=== PATIENT | male | born 1960 | race Caucasian/White ===

== ENCOUNTER 2018-04-04 11:37 | Emergency (ER) | payer BC ==
[2018-04-04] MEDS ORDERED: ONDANSETRON 4 MG/2 ML VIAL ONE (13:34)
[2018-04-04] MEDS ORDERED: MORPHINE 4 MG/ML SYR ONE (13:34)
--- NOTE | 2018-04-04 13:52 | RAD REPORT ---
EXAM DESCRIPTION: CT - Stone Protocol - 04/04/2018 1:32 pm CLINICAL HISTORY: Flank pain. left flank pain COMPARISON: CT ABDOMEN PELVIS WO CONTRAST dated 12/26/2007; CT ABD PELVIS W CONTRAST dated 06/10/2006; CT ABD PELVIS W CONTRAST dated 08/07/2005; Renal Ultrasound-Complete dated 04/22/2017 TECHNIQUE: Axial images were obtained without oral or IV contrast. Lack of contrast limits solid org an and vascular assessment. The [id number] spans the entirety of the system partially obscuring uppermost abdomen and lung bases. Coronal reformatted images were obtained and reviewed. All CT scans are performed using dose optimization technique as appropriate and may include automated exposure control or mA/KV adjustment according to patient size. FINDINGS: The lower lung dickson are clear. Imaged portions of the liver and spleen show no suspicious findings on non-contrast imaging. The panc reas and adrenal glands are normal. No pathologic lymphadenopathy in the abdomen or pelvis. Patient is status post left nephrectomy. Multiple right renal parapelvic cysts versus mild to moderat e right hydronephrosis is identified. No right renal stone. No bowel obstruction, free air, free fluid or abscess. Appendectomy. Lower lumbar degenerative changes are present. IMPRESSION: Left nephrectomy. Appendectomy. Mild to moderate right hydronephrosis/ partial UPJ obstruction versus multiple parapelvic cysts. It i s challenging to distinguish these two entities without the IV contrast material. If clinically indic ated, nuclear medicine Mag 3 renogram may be considered.
[2018-04-04 14:09] LABS: Absolute Lymphocytes (CBC) 1.6 K/uL (0.7-4.9); Absolute Monocytes 0.7 K/uL (0.1-1.3); Absolute Neutrophil 4.7 K/uL (1.8-8.0); Basophils % 0.5 % (0-1.3); Eosinophils % 1.4 % (0-4.4); Lymphocytes % 23.1 % (15.3-44.8); MCH 31.7 pg (27.0-35.0); MCV 89.6 fL (80-100); MPV 8.1 fL (7.6-11.3); Monocytes % 9.3 % (3.3-12.3)
[2018-04-04 14:22] LABS: Albumin 3.7 g/dL (3.4-5.0); Bilirubin Direct 0.1 mg/dL (0-0.2); Bilirubin Total 0.4 mg/dL (0.2-1.0); Potassium 4.2 mmol/L (3.5-5.1)
[2018-04-04] MEDS ORDERED: NA CHLORIDE 0.9% 1,000 ML ONE (15:27)
--- NOTE | 2018-04-04 17:35 | ER ---
Nurse's Notes [facility] Name: Ra Sierra Age: 58 yrs Sex: Male : 1960 Arrival Date: 04/04/2018 Time: 11:39 Bed 23 Private MD: Out, [facility] Diagnosis: Acute pancreatitis;Low back pain Presentation: 04/04 11:54 Presenting complaint: Patient states: L low back pain that radiates to L groin and down ss L thigh that began 18 days ago. Pt reports lifting heavy objects quite often. Has seen a chiropractor recently, but states the pain has not improved. Transition of care: patient was not received from another setting of care. Onset of symptoms was March 17, 2018. Risk Assessment: Do you want to hurt yourself or someone else? Patient reports no desire to harm self or others. Initial Sepsis Screen: Does the patient meet any 2 criteria? No. Patient's initial sepsis screen is negative. Does the patient have a suspected source of infection? No. Patient's initial sepsis screen is negative. Care prior to arrival: None. 11:54 Method Of Arrival: Ambulatory ss 11:54 Acuity: AIYANA 4 ss Historical: - Allergies: 11:56 No Known Allergies; ss - PMHx: 11:56 BPH; kidney CA (remission); ss - PSHx: 11:56 Appendectomy; L nephrectomy; ss - Immunization history:: Adult Immunizations unknown. - Social history:: Smoking status: Patient/guardian denies using tobacco. - Ebola Screening: : Patient denies exposure to infectious person Patient denies travel to an Ebola-affected area in the 21 days before illness onset. Screenin:17 Abuse screen: Denies threats or abuse. Nutritional screening: No deficits noted. tl3 Tuberculosis screening: No symptoms or risk factors identified. Fall Risk None identified. Assessment: 13:17 General: Appears uncomfortable, slender, well groomed, well developed, well nourished, tl3 Behavior is calm, cooperative, appropriate for age. Pain: Complains of pain in left lower back pain that radiates to the groin and down the left leg to the knee Pain began March 17 lifting injury. Neuro: Level of Consciousness is awake, alert, obeys commands, Oriented to person, place, time, situation, Appropriate for age. Cardiovascular: Patient's skin is warm and dry. Respiratory: Respiratory effort is even, unlabored, Respiratory pattern is regular, symmetrical. GI: No signs and/or symptoms were reported involving the gastrointestinal system. : No signs and/or symptoms were reported regarding the genitourinary system. EENT: No signs and/or symptoms were reported regarding the EENT system. Derm: No signs and/or symptoms reported regarding the dermatologic system. Musculoskeletal: Reports pain in left lower back ratiatind to left groin and down left leg to knee since March 17. 15:19 Reassessment: Patient appears in no apparent distress at this time. No changes from tl3 previously documented assessment. Patient and/or family updated on plan of care and expected duration. Pain level reassessed. Patient is alert, oriented x 3, equal unlabored respirations, skin warm/dry/pink. 17:30 Reassessment: Patient appears in no apparent distress at this time. No changes from tl3 previously documented assessment. Patient and/or family updated on plan of care and expected duration. Pain level reassessed. Patient is alert, oriented x 3, equal unlabored respirations, skin warm/dry/pink. Jose at bedside discussing POC with pt and family. Vital Signs: 11:56 BP 174 / 99; Pulse 90; Resp 16; Temp 97.3(TE); Pulse Ox 98% on R/A; Weight 86.18 kg; ss Height 5 ft. 10 in. (177.80 cm); Pain 7/10; 13:17 BP 165 / 98; Pulse 70; Resp 18; Pulse Ox 98% on R/A; tl3 15:53 BP 117 / 88; Pulse 67; Resp 18; Pulse Ox 97% ; tl3 17:30 BP 157 / 99; Pulse 72; Resp 16; Pulse Ox 100% on R/A; tl3 11:56 Body Mass Index 27.26 (86.18 kg, 177.80 cm) ED Course: 11:39 Patient arrived in ED. mr 11:39 Out, of Town is Private Physician. mr 11:55 Triage completed. ss 11:56 Arm band placed on right wrist. 13:01 Jose Mares PA is PHCP. [facility] 13:01 John Manzo MD is Attending Physician. [facility] 13:16 Diana Ramirez, ROJELIO is Primary Nurse. tl3 13:17 Patient has correct armband on for positive identification. Placed in gown. Bed in low tl3 position. Call light in reach. Side rails up X 1. Adult w/ patient. Pulse ox on. NIBP on. Warm blanket given. 13:17 No provider procedures requiring assistance completed. tl3 13:30 CT completed. Patient tolerated procedure well. Patient moved to CT via wheelchair. vr Patient moved back from CT. 13:31 CT Stone Protocol In Process Unspecified. EDMS 17:35 Vignesh Lui MD is Referral Physician. jmm 17:44 IV discontinued, intact, bleeding controlled, No redness/swelling at site. Pressure tl3 dressing applied. Administered Medications: 13:35 Drug: Zofran 4 mg Route: IVP; Infused Over: 2 mins; Site: right antecubital; tl3 15:45 Follow up: Response: No adverse reaction tl3 15:38 Drug: NS 0.9% 1000 ml Route: IV; Rate: 1 bolus; Site: right antecubital; tl3 16:53 Follow up: IV Status: Completed infusion; IV Intake: 1000ml tl3 15:45 Drug: morphine 4 mg Route: IVP; Infused Over: 3 mins; Site: right antecubital; tl3 15:45 Follow up: Response: Pain is decreased tl3 Intake: 16:53 IV: 1000ml; Total: 1000ml. tl3 Outcome: 17:35 Discharge ordered by . [facility] 17:44 Discharged to home ambulatory. tl3 17:44 Condition: stable 17:44 Discharge instructions given to patient, family, Instructed on discharge instructions, follow up and referral plans. medication usage, Demonstrated understanding of instructions, follow-up care, medications, Prescriptions given X 2. 17:46 Patient left the ED. tl3 Signatures: Dispatcher [employer] EDMS Jose Mares PA PA jmm Rivera, Maria mr Trupti Nicole, RN RN Imelda Price Tammy, ROJELIO RN tl3
--- NOTE | 2018-04-04 17:35 | EDPHYS ---
Physician Documentation [facility] Name: Ra Sierra Age: 58 yrs Sex: Male : 1960 Arrival Date: 04/04/2018 Time: 11:39 Bed 23 Private MD: Out, [facility] ED Physician John Manzo HPI: 04/04 13:19 This 58 yrs old Male presents to ER via Ambulatory with complaints of Back jmm Pain, Groin Pain. 13:19 The patient presents with pain that is acute. Onset: The symptoms/episode jmm began/occurred gradually. 13:19 The pain radiates to the left leg. Associated signs and symptoms: Pertinent negatives: jmm abdominal pain, fever, vomiting. This is a 58 year old male with a history of BPH, kidney cancer that presents to the ED with approx 2 weeks of lower back pain which radiates to the left hip and down the left leg. Patient denies fever, abdominal pain, numbness, fecal incontinence, urinary retention, leg weakness. . Historical: - Allergies: 11:56 No Known Allergies; ss - PMHx: 11:56 BPH; kidney CA (remission); ss - PSHx: 11:56 Appendectomy; L nephrectomy; ss - Immunization history:: Adult Immunizations unknown. - Social history:: Smoking status: Patient/guardian denies using tobacco. - Ebola Screening: : Patient denies exposure to infectious person Patient denies travel to an Ebola-affected area in the 21 days before illness onset. ROS: 13:19 Constitutional: Negative for fever, chills, and weight loss, Cardiovascular: Negative jmm for chest pain, palpitations, and edema, Respiratory: Negative for shortness of breath, cough, wheezing, and pleuritic chest pain, Abdomen/GI: Negative for abdominal pain, nausea, vomiting, diarrhea, and constipation. 13:19 Back: Positive for pain at rest. 13:19 MS/extremity: Positive for pain. 13:19 All other systems are negative. Exam: 13:19 Constitutional: This is a well developed, well nourished patient who is awake, alert, jmm and in no acute distress. Head/Face: atraumatic. Chest/axilla: Normal chest wall appearance and motion. Cardiovascular: Regular rate and rhythm. No edema appreciated Respiratory: Normal respirations, no respiratory distress appreciated 13:19 Abdomen/GI: Inspection: abdomen appears normal, Bowel sounds: normal, Palpation: abdomen is soft and non-tender, in all quadrants. 13:19 Back: muscle spasm, is appreciated in the left low back. 13:19 Musculoskeletal/extremity: ROM: intact in all extremities, strength appreciated to the extensor hallucis longus intact bilaterally. 13:19 Skin: Appearance: Color: normal in color. 13:19 Neuro: Motor: is normal. 13:19 Psych: Behavior/mood is pleasant, cooperative. Vital Signs: 11:56 BP 174 / 99; Pulse 90; Resp 16; Temp 97.3(TE); Pulse Ox 98% on R/A; Weight 86.18 kg; ss Height 5 ft. 10 in. (177.80 cm); Pain 7/10; 13:17 BP 165 / 98; Pulse 70; Resp 18; Pulse Ox 98% on R/A; tl3 15:53 BP 117 / 88; Pulse 67; Resp 18; Pulse Ox 97% ; tl3 17:30 BP 157 / 99; Pulse 72; Resp 16; Pulse Ox 100% on R/A; tl3 11:56 Body Mass Index 27.26 (86.18 kg, 177.80 cm) ss MDM: 13:[address] [facility] 17:23 Data reviewed: vital signs, nurses notes. Counseling: I had a detailed discussion with [facility] the patient and/or guardian regarding: the historical points, exam findings, and any diagnostic results supporting the discharge/admit diagnosis, the need for outpatient follow up. 17:32 ED course: I discussed the patient along with the need for admission with Dr. Huerta due [facility] to concerns for elevated lipase and hydronephrosis to the right kidney. Dr. Huerta discussed the patient with Dr. Austin whom stated to her this was chronic to the right kidney. I was then advised to administer 1 liter of NS and repeat lipase. The repeat result of the lipase which was elevated was discussed with Dr Huerta. Dr. Huerta had discussed the patient's case with Dr. Herron and advises outpatient follow up. Labs, CT imaging findings were discussed with the patient and family. They were advised to only take clear fluids and follow up with Dr. Lui. They were otherwise given strict return precautions. The patient understood and agree with the plan of care. . 04/04 13:20 Order name: Basic Metabolic Panel; Complete Time: 14:38 [facility] 04/04 13:20 Order name: CBC with Diff; Complete Time: 14:16 [facility] 04/04 13:20 Order name: Creatinine for Radiology; Complete Time: 14:38 [facility] 04/04 13:20 Order name: Hepatic Function; Complete Time: 14:38 [facility] 04/04 13:20 Order name: Lipase; Complete Time: 14:38 [facility] 04/04 17:32 Interpretation: Abnormal: LIP 1207. [facility] 04/04 16:12 Order name: Lipase; Complete Time: 17:22 snw 04/04 13:20 Order name: IV Saline Lock; Complete Time: 17:39 [facility] 04/04 13:20 Order name: Labs collected and sent; Complete Time: 17:39 [facility] 04/04 13:20 Order name: CT Stone Protocol; Complete Time: 13:56 jm Administered Medications: 13:35 Drug: Zofran 4 mg Route: IVP; Infused Over: 2 mins; Site: right antecubital; tl3 15:45 Follow up: Response: No adverse reaction tl3 15:38 Drug: NS 0.9% 1000 ml Route: IV; Rate: 1 bolus; Site: right antecubital; tl3 16:53 Follow up: IV Status: Completed infusion; IV Intake: 1000ml tl3 15:45 Drug: morphine 4 mg Route: IVP; Infused Over: 3 mins; Site: right antecubital; tl3 15:45 Follow up: Response: Pain is decreased tl3 Disposition: 17:49 Co-signature as Attending Physician, John Manzo MD. rn Disposition: 04/04/18 17:35 Discharged to Home. Impression: Acute pancreatitis, Low back pain. - Condition is Stable. - Discharge Instructions: Back Pain, Adult, Acute Pancreatitis. - Prescriptions for Zofran ODT 4 mg Oral tablet,disintegrating - place 1 tablet by TRANSLINGUAL route every 4-6 hours; 20 tablet. orphenadrine citrate 100 mg Oral Tablet Sustained Release - take 1 tablet by ORAL route 2 times per day As needed; 20 tablet. - Medication Reconciliation Form, Thank You Letter, Antibiotic Education, Prescription Opioid Use form. - Follow up: Vignesh Lui MD; When: 2 - 3 days; Reason: Recheck today's complaints, Continuance of care, Re-evaluation by your physician. Signatures: Dispatcher [employer] EDJose Thompson PA PA jmm Nieto, Roman, MD MD rn Smirch, Shelby, RN RN ss Diana Ramirez RN RN tl3 Corrections: (The following items were deleted from the chart) 17:46 17:35 04/04/2018 17:35 Discharged to Home. Impression: Acute pancreatitis; Low back tl3 pain. Condition is Stable. Forms are Medication Reconciliation Form, Thank You Letter, Antibiotic Education, Prescription Opioid Use. Follow up: Vignesh Lui; When: 2 - 3 days; Reason: Recheck today's complaints, Continuance of care, Re-evaluation by your physician. kaelyn
== END 2018-04-04 17:46 | disposition home or self-care (01) ==
LOC: ER 11:37
DX: K85.90 Acute pancreatitis without necrosis or infection, unspecified (principal); Z85.528 Personal history of other malignant neoplasm of kidney
CPT/HCPCS: 36415; 74176; 76377; 80048; 80076; 83690; 85025; 96361; 96374; 96375; 99284; J2405; J7030

== ENCOUNTER 2018-04-24 16:47 | Emergency (ER) | payer BC ==
--- NOTE | 2018-04-24 17:34 | EDPHYS ---
Physician Documentation [facility] Name: Ra Sierra Age: 58 yrs Sex: Male : 1960 Arrival Date: 04/24/2018 Time: 16:50 Bed 7 Private MD: Kristina Gamboa H ED Physician John Manzo HPI: 04/24 17:24 This 58 yrs old Male presents to ER via Ambulatory with complaints of Back kb Pain. 17:24 The patient presents with pain that is acute. The symptoms are located in the low back. kb Onset: The symptoms/episode began/occurred 1 month(s) ago. The pain radiates to the left leg. Associated signs and symptoms: The patient has no apparent associated signs or symptoms. The problem was sustained lifting and moving hay bails. Modifying factors: The patient symptoms are alleviated by nothing, the patient symptoms are aggravated by any movement. Severity of symptoms: At their worst the symptoms were moderate, in the emergency department the symptoms are unchanged. The patient has not experienced similar symptoms in the past. The patient has been recently seen at the [facility] Emergency Department, a couple of weeks ago, for similar complaints. Pt reports low left back pain (top of buttock) that radiates down left leg. Pain started "more than a month ago now." Reports he had lifted some hay bails around the same time and thinks that is what caused the pain. . Historical: - Allergies: 17:08 No Known Allergies; aj - Home Meds: 17:08 tamsulosin 0.4 mg oral cp24 1 cap once daily [Active]; aj - PMHx: 17:08 BPH; kidney CA (remission); aj - PSHx: 17:08 Appendectomy; L nephrectomy; aj - Immunization history:: Adult Immunizations up to date. - Social history:: Smoking status: Patient/guardian denies using tobacco. - Ebola Screening: : Patient negative for fever greater than or equal to 101.5 degrees Fahrenheit, and additional compatible Ebola Virus Disease symptoms Patient denies exposure to infectious person Patient denies travel to an Ebola-affected area in the 21 days before illness onset No symptoms or risks identified at this time. ROS: 17:26 Constitutional: Negative for fever, chills, and weight loss, ENT: Negative for injury, kb pain, and discharge, Neck: Negative for injury, pain, and swelling, Cardiovascular: Negative for chest pain, palpitations, and edema, Respiratory: Negative for shortness of breath, cough, wheezing, and pleuritic chest pain, Abdomen/GI: Negative for abdominal pain, nausea, vomiting, diarrhea, and constipation, MS/Extremity: Negative for injury and deformity, Skin: Negative for injury, rash, and discoloration, Neuro: Negative for headache, weakness, numbness, tingling, and seizure. 17:26 Back: Positive for pain with movement. Exam: 17:32 Constitutional: This is a well developed, well nourished patient who is awake, alert, kb and in no acute distress. Head/Face: Normocephalic, atraumatic. Chest/axilla: Normal chest wall appearance and motion. Nontender with no deformity. No lesions are appreciated. Cardiovascular: Regular rate and rhythm with a normal S1 and S2. No gallops, murmurs, or rubs. Normal PMI, no JVD. No pulse deficits. Respiratory: Lungs have equal breath sounds bilaterally, clear to auscultation and percussion. No rales, rhonchi or wheezes noted. No increased work of breathing, no retractions or nasal flaring. Abdomen/GI: Soft, non-tender, with normal bowel sounds. No distension or tympany. No guarding or rebound. No evidence of tenderness throughout. Skin: Warm, dry with normal turgor. Normal color with no rashes, no lesions, and no evidence of cellulitis. MS/ Extremity: Pulses equal, no cyanosis. Neurovascular intact. Full, normal range of motion. Neuro: Awake and alert, GCS 15, oriented to person, place, time, and situation. Cranial nerves II-XII grossly intact. Motor strength 5/5 in all extremities. Sensory grossly intact. Cerebellar exam normal. Normal gait. 17:32 Back: pain, that is moderate, of the left low back. Vital Signs: 17:08 BP 145 / 91; Pulse 92; Resp 17; Temp 98.4; Pulse Ox 97% on R/A; Weight 86.18 kg; Height aj 5 ft. 10 in. (177.80 cm); 17:08 Body Mass Index 27.26 (86.18 kg, 177.80 cm) aj MDM: 17:12 Patient medically screened. kb 17:33 Data reviewed: vital signs, nurses notes. Data interpreted: Pulse oximetry: on room air kb is 97 %. Interpretation: normal. Counseling: I had a detailed discussion with the patient and/or guardian regarding: the historical points, exam findings, and any diagnostic results supporting the discharge/admit diagnosis, the need for outpatient follow up, a family practitioner, to return to the emergency department if symptoms worsen or persist or if there are any questions or concerns that arise at home. Administered Medications: 17:39 Drug: [place] (7.5 mg-325 mg) 1 tabs Route: PO; ss Disposition: 18:36 Co-signature as Attending Physician, John Manzo MD. rn Disposition: 04/24/18 17:33 Discharged to Home. Impression: Sciatica, left side. - Condition is Stable. - Discharge Instructions: Sciatica, [id number], Back Exercises, [id number]. - Prescriptions for orphenadrine citrate 100 mg Oral Tablet Sustained Release - take 1 tablet by ORAL route 2 times per day As needed; 20 tablet. - Medication Reconciliation Form, Thank You Letter, Antibiotic Education, Prescription Opioid Use, Work release form form. - Follow up: Emergency Department; When: As needed; Reason: Worsening of condition. Follow up: Private Physician; When: 2 - 3 days; Reason: Recheck today's complaints, Continuance of care, Re-evaluation by your physician. Signatures: Padmaja Faria, WILLOW-C HOT WORKER-CkKorey Pham RN RN sg Myers, Amanda, RN RN aj Nieto, Roman, MD MD rn Smirch, Shelby, RN RN Corrections: (The following items were deleted from the chart) 17:42 17:33 04/24/2018 17:33 Discharged to Home. Impression: Sciatica, left side. Condition sg is Stable. Forms are Medication Reconciliation Form, Thank You Letter, Antibiotic Education, Prescription Opioid Use. Follow up: Emergency Department; When: As needed; Reason: Worsening of condition. Follow up: Private Physician; When: 2 - 3 days; Reason: Recheck today's complaints, Continuance of care, Re-evaluation by your physician. kb
--- NOTE | 2018-04-24 17:34 | ER ---
Nurse's Notes [facility] Name: Ra Sierra Age: 58 yrs Sex: Male : 1960 Arrival Date: 04/24/2018 Time: 16:50 Bed 7 Private MD: Kristina Gamboa H Diagnosis: Sciatica, left side Presentation: 04/24 17:06 Presenting complaint: Patient states: Low back pain for 3 weeks. Patient missed aj appointment with PCP for follow up and had to reschedule for 05/06. Transition of care: patient was not received from another setting of care. Onset of symptoms was March 25, 2018. Risk Assessment: Do you want to hurt yourself or someone else? Patient reports no desire to harm self or others. Initial Sepsis Screen: Does the patient meet any 2 criteria? No. Patient's initial sepsis screen is negative. Does the patient have a suspected source of infection? No. Patient's initial sepsis screen is negative. Care prior to arrival: None. 17:06 Method Of Arrival: Ambulatory 17:06 Acuity: AIYANA 4 Triage Assessment: 17:08 General: Appears in no apparent distress. comfortable, Behavior is calm, cooperative, aj appropriate for age. Pain: Complains of pain in low back area. Neuro: Level of Consciousness is awake, alert, obeys commands, Oriented to person, place, time, situation, Appropriate for age. Respiratory: Airway is patent Respiratory effort is even, unlabored, Respiratory pattern is regular, symmetrical. Derm: Skin is intact, is healthy with good turgor, Skin is pink, warm \T\ dry. normal. Musculoskeletal: Circulation, motion, and sensation intact. Reports pain in low back area, buttocks and left leg. Historical: - Allergies: 17:08 No Known Allergies; aj - Home Meds: 17:08 tamsulosin 0.4 mg oral cp24 1 cap once daily [Active]; aj - PMHx: 17:08 BPH; kidney CA (remission); aj - PSHx: 17:08 Appendectomy; L nephrectomy; aj - Immunization history:: Adult Immunizations up to date. - Social history:: Smoking status: Patient/guardian denies using tobacco. - Ebola Screening: : Patient negative for fever greater than or equal to 101.5 degrees Fahrenheit, and additional compatible Ebola Virus Disease symptoms Patient denies exposure to infectious person Patient denies travel to an Ebola-affected area in the 21 days before illness onset No symptoms or risks identified at this time. Vital Signs: 17:08 BP 145 / 91; Pulse 92; Resp 17; Temp 98.4; Pulse Ox 97% on R/A; Weight 86.18 kg; Height aj 5 ft. 10 in. (177.80 cm); 17:08 Body Mass Index 27.26 (86.18 kg, 177.80 cm) aj ED Course: 16:50 Patient arrived in ED. mr 16:50 Kristina Gamboa DO is Private Physician. mr 17:07 Triage completed. aj 17:08 Arm band placed on left wrist. Patient placed in an exam room. aj 17:12 Padmaja Faria FNP-C is PHCP. kb 17:12 John Manzo MD is Attending Physician. kb 17:41 Korey Coley, RN is Primary Nurse. sg Administered Medications: 17:39 Drug: [place] (7.5 mg-325 mg) 1 tabs Route: PO; ss Outcome: 17:33 Discharge ordered by MD. kb 17:42 Patient left the ED. sg Signatures: Padmaja Faria FNP-C FNP-Ckb Gay, Steven, Jacqui Hudson RN, RN RN aj Rivera, Mary mr Trupti Nicole, ROJELIO SERRATO ss
[2018-04-24] MEDS ORDERED: HYDROCODONE/APAP 7.5/325 MG TAB ONE (17:43)
== END 2018-04-24 17:42 | disposition home or self-care (01) ==
LOC: ER 16:47
DX: M54.32 Sciatica, left side (principal); Z85.528 Personal history of other malignant neoplasm of kidney
CPT/HCPCS: 99282